=== PATIENT | female | born 1990 | race Caucasian/White ===

== ENCOUNTER 2023-12-27 11:19 | Day surgery (SDC) | payer OTHER ==
[~2023-12-27] VITALS: Ht 162.6 cm; Wt 72.1 kg
[2023-12-27] VITALS (10 sets, daily range): BP systolic 114–140; BP diastolic 63–84; PULSE 72–101; TEMP 98.1–98.3
[~2023-12-27 11:19] MED LIST: LR 1,000 ML IV SCH; Ondansetron 4 MG/2 ML VIAL IV SCH; Scopolamine 1 MG Delivered 3-Day PATCH TD SCH; diazePAM 5 MG TAB PO SCH
[2023-12-27] MEDS ORDERED: ALDACTONE50 MG PO (12:01)
--- NOTE | 2023-12-27 12:45 | NUR ---
1138 Patient ambulatory to bay 2 with a steady gait, breathing even and unlabored. Patient is alert and oriented, accompanied by her . Consents reviewed and signed by patient. IV established, blood specimen obtained and sent to blood bank. LR infusing via dial a flow. Call light in reach. Warm blankets provided.
[2023-12-27] MEDS ORDERED: Rocuronium 50 MG/5 ML Multi-Dose VIAL ONE (12:58)
[2023-12-27] MEDS ORDERED: fentaNYL 50 MCG/ML 5 ML VIAL ONE (12:58)
[2023-12-27] MEDS ORDERED: Lidocaine PF 2% (20 MG/ML) 5 ML VIAL ONE (13:00)
[2023-12-27] MEDS ORDERED: Ondansetron 4 MG/2 ML VIAL ONE (13:01)
[2023-12-27] MEDS ORDERED: dexAMETHasone 10 MG/ML VIAL ONE (13:01)
[2023-12-27] MEDS ORDERED: Ketorolac 30 MG/ML VIAL ONE (13:01)
[2023-12-27] MEDS ORDERED: NS 20 ML IV ONE (13:01)
[2023-12-27] MEDS ORDERED: Lidocaine 2% (20 MG/ML) 20 ML UROJET UR ONE (13:30)
[2023-12-27] MEDS ORDERED: Topical Skin Adhesive 1 EACH (1 ML) TOP ONE (13:30)
[2023-12-27] MEDS ORDERED: Tranexamic Acid 1,000 MG/10 ML VIAL ONE (13:58)
[2023-12-27] MEDS ORDERED: Acetaminophen 500 MG TAB PO PRN (14:45)
[2023-12-27] MEDS ORDERED: Ondansetron 4 MG/2 ML VIAL IV PRN (14:45)
[2023-12-27] MEDS ORDERED: Naloxone 0.4 MG/ML VIAL IV PRN (14:45)
[2023-12-27] MEDS ORDERED: oxyCODONE 5 MG TAB PO PRN (14:45)
[2023-12-27] MEDS ORDERED: LR 1,000 ML IV SCH (14:45)
[2023-12-27] MEDS ORDERED: fentaNYL 50 MCG/ML 1 ML SYRINGE/VIAL [PACU/SDC ONLY] IV PRN (15:15)
[2023-12-27] MEDS ORDERED: Morphine 2 MG/1 ML VIAL [PACU/SDC ONLY] IV PRN (15:15)
[2023-12-27] MEDS ORDERED: HYDROmorphone 1 MG/1 ML SYRINGE [PACU/SDC ONLY] IV PRN (15:15)
--- NOTE | 2023-12-27 16:20 | NUR ---
PT UP TO THE FLOOR AT THIS TIME. VITALS STABLE, A/O X4, PAIN 2/10 IN RIGHT ABDOMEN, INCISIONS X4 CLEAN AND DRY TO SKIN GLUE. FAMILY AT BEDSIDE. TOLERATING ICE CHIPS WELL. FLANNERY TO DEPENDENT DRAINAGE. WILL CONTINUE TO MONITOR.
--- NOTE | 2023-12-27 20:20 | NUR ---
PT IN BED, SPOUSE AT BEDSIDE. MEDICATED WITH SCHEDULED MOTRIN AND COLACE. PT HAS ROBOTIC SITES TO ABD X4, GLUED AND DRY. ABD NANCY, BS NOTED. DENIES FLATUS. HAS SCDS ON, IVF INFUSING WITHOUT PROBLEM. IS ALERT AND ORIENTED X4.
[2023-12-27] MEDS ORDERED: Ibuprofen 800 MG TAB PO SCH (20:42)
[2023-12-27] MEDS ORDERED: Docusate Sodium 100 MG CAP PO SCH (21:00)
--- NOTE | 2023-12-27 23:30 | NUR ---
OXYCODONE 5MG PO GIVEN FOR 6/10 PAIN TO ABD.
--- NOTE | 2023-12-27 23:44 | NUR ---
AMBULATED PT IN HALLWAY, SLOW AND STEADY GAIT. TOLERATES WITHOUT PROBLEM.
[2023-12-28 00:36] VITALS: BP_SYST 114
[2023-12-28 03:00] VITALS: BP 107/68; PULSE 84; TEMP 98.2
[2023-12-28 04:30] VITALS: BP_SYST 107
--- NOTE | 2023-12-28 06:30 | NUR ---
PRUDENCIO VEE'Efren AFTER BALLOON DEFLATED, TOLERATES WITHOUT PROBLEM. EDUCATED ON CALLING FOR ASSIST TO BATHROOM. TAKES MYLICON FOR GAS.
[2023-12-28 07:04] VITALS: BP 109/67; PULSE 78; TEMP 98.1
--- NOTE | 2023-12-28 08:40 | NUR ---
pt a&ox4 resting in bed, at bedside. vss. meds given and assessment complete. pt rates pain a 6/10, pain medication given per emar. x4 lap sites are cdi. pt urinating without difficulty after calrke discontinued. tolerated breakfast without difficulty. INT to right ac patent. pt denies needs at this time. call light in reach.
[2023-12-28 09:00] VITALS: BP_SYST 109
--- NOTE | 2023-12-28 09:10 | NUR ---
discharge instructions given to pt, all questions answered. INT discontinued without difficulty.
== END 2023-12-28 09:10 | disposition home or self-care (01) ==
LOC: SDCO 11:19 → SURG 16:20 → SDCO 12-28 09:10
DX: N94.6 Dysmenorrhea, unspecified (principal); N83.8 Other noninflammatory disorders of ovary, fallopian tube and broad ligament; G43.829 Menstrual migraine, not intractable, without status migrainosus
CPT/HCPCS: OP; A4314; J0690; J1100; J1170; J1885; J2405; J2704; J3010; J7120